=== PATIENT | male | born 1995 | race Caucasian/White ===

== ENCOUNTER 2024-03-22 22:31 | Emergency (ER) | payer SELFPAY ==
[2024-03-22 22:36] VITALS: BP 154/90
[2024-03-22 23:41] VITALS: BP 167/84; BMI 27.7
--- NOTE | 2024-03-22 23:49 | ED.GENMED ---
History of Present Illness
General
Chief Complaint: Psychiatric Problem
Source: patient and family
Time Seen by Provider: 03/22/24 23:39
History of Present Illness
History of Present Illness:
29-year-old male states he has been drinking 14 beers a day for some time. He states he has been depressed and has had thoughts of suicide. States that he feels like he is drinking to ultimately kill himself. Brought in by his brother. Does
think he needs help. He states he has been drinking in the morning when he wakes up.
Past History
Past History
ED Past Medical History: Psychiatric (Prior suicidal attempt)
Phy Exam
Physical Exam
Physical Exam:
CONSTITUTIONAL Patient alert and oriented to person, place and time. Well-appearing. Vital signs reviewed.
HEAD atraumatic, normocephalic.
EYES eyelids normal to inspection, Pupils equally round and reactive to light, Extraocular muscles intact, Conjunctiva normal, Sclera normal.
NECK normal range of motion, Trachea midline, no jugular venous distention.
RESPIRATORY CHEST No respiratory distress noted, Chest expansion equal, Bilateral breath sounds clear.
CARDIOVASCULAR regular rate and rhythm, Heart sounds normal.
ABDOMEN abdomen nontender, Bowel sounds normal. No distention.
BACK normal inspection, no obvious deformities
UPPER EXTREMITY range of motion normal, Motor strength normal, no cyanosis, no edema.
LOWER EXTREMITY range of motion normal, Motor strength normal, no cyanosis, no edema.
NEURO Speech normal, No focal motor deficits, [place] coma scale 15, Memory normal, Cranial Nerves intact to screening exam.
SKIN skin warm, dry, and normal in color.
PSYCHIATRIC patient oriented to person place and time, depressed affect
Course
Orders/Labs/Results
Orders:
Orders
03/22/24 23:45
1:1 Observation - Suicide/ Violent Behavior As Directed
Crisis Consult Urgent
Reason for Consult: sucidal ideation
03/22/24 23:53
Acetaminophen Urgent
Alcohol Urgent
Complete Blood Count/With Diff Urgent
Comprehensive Metabolic Panel Urgent
Magnesium Urgent
Salicylate Urgent
Urine Drug Abuse Screen Urgent
Date Specimen was Collected: 03/22/24
Time Specimen was Collected: 23:47
03/22/24 23:56
0.9% Sodium Chloride 500 ml [Nss] 1,000 ml IV BOLUS
03/23/24 00:42
Lorazepam [Ativan] 1 mg PO NOW STA
Abnormal Lab Results
03/22/24
23:53
WBC 11.0 H 10^3/uL
(4.8-10.8)
Abs Immat Gran (auto) 0.1 H 10^3/uL
(0-0.05)
Absolute Lymphs (auto) 4.2 H 10^3/uL
(1.2-3.4)
Absolute Monos (auto) 0.7 H 10^3/uL
(0.1-0.6)
Absolute Eos (auto) 1.0 H 10^3/uL
(0-0.7)
Immature Gran % 1.1 H %
(0-0.5)
Eosinophils % 9.2 H %
(0-6)
Chloride 97 L mmol/L
(98-107)
Albumin 5.4 H g/dl
(3.5-5.0)
Salicylates < 1.0 L mg/dl
(2.0-20.0)
Acetaminophen < 10 L ug/ml
(10-30)
03/22/24 23:53
03/22/24 23:53
Vital Signs
Initial and Last Documented VS:
Initial Vital Signs
Temp Pulse Resp BP Pulse Ox
98.2 F 91 20 154/90 98
03/22/24 22:36 03/22/24 22:36 03/22/24 22:36 03/22/24 22:36 03/22/24 22:36
Last Documented Vital Signs
Temp Pulse Resp BP Pulse Ox
98.2 F 60 16 167/84 98
03/22/24 22:36 03/22/24 23:41 03/22/24 23:41 03/22/24 23:41 03/22/24 23:41
MDM/Problems Addressed
MDM/Problems Addressed:
Major depression, alcohol abuse, suicidal thoughts
*Pulse Oximetry
Patient hypoxic: no
*Critical Care Note
Total Time (30-74mins, 75-104mins- exclusive of procedures): Not Applicable
Data Reviewed
Source: patient and family
Patient Management
Escalation/DeEscalation of care consider admission/obs:
29-year-old male presents for help with both his psychiatric care as well as his substance abuse. Stable. Does not appear to be in florid withdrawal but feels a little bit shaky. Okay for discharge to crisis after oral lorazepam
ED Attending Note
-
Portions of this chart may have been created with voice recognition software.� Occasional wrong word or��sound alike� substitutions may have occurred due to the inherent limitations of voice recognition software.
Discharge Plan
Departure
Patient Disposition: Psych Facility
Date of Disposition: 03/22/24
Time of Disposition: 23:49
Discharge Problem:
Depression with suicidal ideation, Alcohol abuse
Prescriptions:
No Action
No Current Medications
0
Referrals:
Tulio Lancaster MD [Family Provider] -
Interventions
Interventions:
*Risk Screen - Suicide Last Done: 03/22/24 23:41
*General Assessment Last Done: 03/22/24 23:41
*Neglect/Abuse Screening Last Done: 03/22/24 23:41
*ED COVID-19 Vaccine History Last Done: 03/22/24 23:41
*Nursing Disposition Last Done: 03/23/24 01:09
ED-Psychological Assessment Last Done: 03/22/24 23:41
Discharge Date and Time
Discharge Date/Time: 03/23/24 01:15
Print Language: MAORI
[2024-03-22] MEDS: NSS 1000 IV (23:57)
[2024-03-23 00:26] LABS: Amphetamines Negative (Negative); Barbiturates Negative (Negative); Benzodiazepines Negative (Negative); Buprenorphine Negative (Negative); Cocaine Negative (Negative); Marijuana Negative (Negative); Methadone Negative (Negative); Methamphetamines Negative (Negative); Opiates Negative (Negative); Phencyclidine Negative (Negative); Tricyclic Antidepressants Negative (Negative)
[2024-03-23 00:27] LABS: ALT (SGPT) 40 U/L (0-50); AST (SGOT) 55 U/L (17-59); Acetaminophen < 10 ug/ml (10-30); Albumin 5.4 g/dl (3.5-5.0); Alcohol 260 mg/dl; Alkaline Phosphatase 61 U/L (38-126); Blood Urea Nitrogen 9 mg/dl (9-20); Calcium 10.1 mg/dl (8.4-10.2); Carbon Dioxide 22 mmol/L (22-30); Chloride 97 mmol/L (98-107); Estimated Creatinine Clearance 116 ml/min; Glucose 87 mg/dl (70-99); Magnesium 2.2 mg/dl (1.6-2.3); Potassium 4.9 mmol/L (3.5-5.1); Salicylate < 1.0 mg/dl (2.0-20.0); Sodium 138 mmol/L (135-145); Total Bilirubin 0.5 mg/dl (0.2-1.3); Total Protein 8.2 g/dl (6.3-8.2); eGFR > 60.00
[2024-03-23 00:40] LABS: % Basophils 0.8 % (0-2); % Eosinophils 9.2 % (0-6); % Immature Granulocytes 1.1 % (0-0.5); % Monocytes 6.7 % (1.7-9.3); % Neutrophils 44.2 % (42.2-75.2); Absolute Basophils 0.1 10^3/uL (0-0.2); Absolute Immature Granulocytes 0.1 10^3/uL (0-0.05); Absolute Lymphocytes 4.2 10^3/uL (1.2-3.4); Absolute Monocytes 0.7 10^3/uL (0.1-0.6); Absolute Neutrophils 4.9 10^3/uL (1.4-6.5); Hematocrit 45.6 % (39.0-52.0); Mean Corp Hgb Conc. 35.1 g/dL (33.0-37.0); Mean Corpuscular Hgb 30.2 pg (27.0-31.0); Mean Corpuscular Volume 86.2 fL (80.0-94.0); Mean Platelet Volume 9.6 fL (7.4-10.4); Nucleated Red Blood Cells % 0 % (-); Platelet Count 361 10^3/uL (130-400); Red Blood Cell Count 5.29 10^6/uL (4.70-6.10); Red Cell Dist. Width 12.6 % (11.5-14.5)
[2024-03-23] MEDS: ATIVAN 1 MG PO (01:04)
== END 2024-03-23 01:15 ==
LOC: EMR 22:31
PROVIDERS: EMERGENCY PHYSICIAN Emergency Medicine; FAMILY PHYSICIAN Family Medicine
DX: F32.9 Major depressive disorder, single episode, unspecified (principal); R45.851 Suicidal ideations; F10.10 Alcohol abuse, uncomplicated; Y90.8 Blood alcohol level of 240 mg/100 ml or more; Z91.51 Personal history of suicidal behavior
CPT/HCPCS: 99285; 96360; 80053; 80143; 80179; 80306; 82077; 83735; 85025

== ENCOUNTER 2024-03-23 09:00 | Emergency (ER) | payer MEDICAID, SELFPAY ==
[2024-03-23 09:06] VITALS: BP 152/91
[2024-03-23 09:16] VITALS: BMI 27.7
[2024-03-23] MEDS: ATIVAN 1 MG PO (09:25)
--- NOTE | 2024-03-23 09:28 | ED.GENMED ---
History of Present Illness
General
Chief Complaint: Alcohol Problem
Time Seen by Provider: 03/23/24 09:12
History of Present Illness
History of Present Illness:
Patient is a 29-year-old male with history of alcohol use presenting to the emergency department from crisis with withdrawal symptoms. Patient states that he drank about 100 beers for the past 3 days. He last drank about 12 hours ago. He states
that he drinks to kill himself as he has been having severe familial issues. He does smoke marijuana daily. He was at crisis with plan placement to [place] for dual SI/withdrawal however he started to develop more withdrawal symptoms they brought
him here. Patient states that he feels shaky. He states that his last Ativan was about 9 hours ago. He denies being withdrawal before. He has never had seizures before. Never gone to a detox center. Does not have any medical complaints.
Past History
Past History
ED Past Medical History: Psychiatric (Prior suicidal attempt)
Phy Exam
Physical Exam
Physical Exam:
GENERAL: in no acute distress, slightly tremulous
HEENT: normocephalic, extraocular movements intact, moist oral mucosa
NECK: normal inspection
RESPIRATORY: no respiratory distress, clear to auscultation bilaterally
CARDIOVASCULAR: regular rate and rhythm
ABDOMEN/: soft, non-distended, non-tender to palpation, no rebound or guarding
EXTREMITIES: non-tender, no edema/swelling
NEUROLOGIC: awake and alert, moves all extremities
Psych: Alert and oriented x 3, depressed mood, cooperative and communicating, no active auditory or visual hallucinations, good insight and judement
SKIN: warm
Scores
Withdrawal Assessment of Alcohol
Withdrawal Assessment Completed?: Not applicable
Course
Orders/Labs/Results
Orders:
Orders
03/23/24 09:17
Lorazepam [Ativan] 1 mg PO NOW STA
03/23/24 09:24
ED Special Safety Observation ONCE
Observation level: Intermittent Observation
Lorazepam [Ativan] 1 mg .ROUTE .STK-MED ONE
03/23/24 10:00
Nicotine [Nicoderm Transdermal] 7 mg TRANSDERM DAILY
Vital Signs
Initial and Last Documented VS:
Initial Vital Signs
Temp Pulse Resp BP Pulse Ox
98.1 F 119 20 152/91 96
03/23/24 09:06 03/23/24 09:06 03/23/24 09:06 03/23/24 09:06 03/23/24 09:06
Last Documented Vital Signs
Temp Pulse Resp BP Pulse Ox
98.1 F 112 20 145/72 95
03/23/24 09:06 03/23/24 10:46 03/23/24 10:46 03/23/24 10:46 03/23/24 09:45
MDM/Problems Addressed
Differential Diagnosis Includes:
Patient is a 29-year-old man with history of alcohol use presenting to the emergency department with withdrawal symptoms. Vitals here notable for tachycardia in the low 100s. Exam is otherwise reassuring. He is likely going through mild
withdrawal. Will obtain msas score and give Ativan as needed. I did discuss with crisis and patient is pending transfer in about an hour for dual SI/detox. He currently has no medical complaints. Will continue to symptomatically treat his
withdrawal symptoms while waiting transportation.
*Critical Care Note
Total Time (30-74mins, 75-104mins- exclusive of procedures): Not Applicable
Update Note
Update Note:
On reevaluation patient resting comfortably. Pending transfer to facility.
ED Attending Note
-
Portions of this chart may have been created with voice recognition software.� Occasional wrong word or��sound alike� substitutions may have occurred due to the inherent limitations of voice recognition software.
Discharge Plan
Departure
Patient Disposition: Acute Rehab Facility
Discharge Problem:
Alcohol withdrawal
Prescriptions:
No Action
No Current Medications
0
Interventions
Interventions:
*Risk Screen - Suicide Last Done: 03/23/24 09:19
*Neglect/Abuse Screening Last Done: 03/23/24 09:19
*ED COVID-19 Vaccine History Last Done: 03/23/24 09:18
*Nursing Disposition Last Done: 03/23/24 10:46
ED- Neurological Assessment Last Done: 03/23/24 10:03
ED-Psychological Assessment Last Done: 03/23/24 10:03
Discharge Date and Time
Discharge Date/Time: 03/23/24 10:46
Print Language: FRENCH
[2024-03-23] MEDS: NICODERM TRANSDERMAL 7 MG TRANSDERM (09:48)
[2024-03-23 10:00] VITALS: BP 145/95
[2024-03-23 10:46] VITALS: BP 145/72
== END 2024-03-23 10:46 ==
LOC: EMR 09:00
PROVIDERS: EMERGENCY PHYSICIAN Student in an Organized Health Care Education/Training Program; FAMILY PHYSICIAN Family Medicine
DX: F10.939 Alcohol use, unspecified with withdrawal, unspecified (principal); R45.851 Suicidal ideations; F12.90 Cannabis use, unspecified, uncomplicated; Z91.51 Personal history of suicidal behavior
CPT/HCPCS: 99285

== ENCOUNTER 2024-04-09 20:03 | Emergency (ER) | payer MEDICAID, SELFPAY ==
[2024-04-09 20:07] VITALS: BP 122/77
[2024-04-09 20:08] VITALS: BP 122/77; BMI 24.3
[2024-04-09 20:26] LABS: % Basophils 0.5 % (0-2); % Eosinophils 9.5 % (0-6); % Immature Granulocytes 0.3 % (0-0.5); % Lymphocytes 30.6 % (20.5-51.1); % Monocytes 5.8 % (1.7-9.3); % Neutrophils 53.3 % (42.2-75.2); Absolute Basophils 0.1 10^3/uL (0-0.2); Absolute Eosinophils 0.9 10^3/uL (0-0.7); Absolute Lymphocytes 2.9 10^3/uL (1.2-3.4); Absolute Monocytes 0.6 10^3/uL (0.1-0.6); Hematocrit 43.5 % (39.0-52.0); Hemoglobin 15.2 g/dL (13.0-18.0); Mean Corp Hgb Conc. 34.9 g/dL (33.0-37.0); Mean Corpuscular Hgb 30.2 pg (27.0-31.0); Mean Corpuscular Volume 86.5 fL (80.0-94.0); Mean Platelet Volume 8.8 fL (7.4-10.4); Nucleated Red Blood Cells % 0 % (-); Platelet Count 344 10^3/uL (130-400); Red Blood Cell Count 5.03 10^6/uL (4.70-6.10); Red Cell Dist. Width 12.9 % (11.5-14.5); White Blood Cell Count 9.4 10^3/uL (4.8-10.8)
--- NOTE | 2024-04-09 20:40 | EDRN ---
Crisis went in and spoke to patient, states cleared to speak with [facility] who I called and is on the way in.
[2024-04-09 20:43] LABS: ALT (SGPT) 56 U/L (0-50); AST (SGOT) 63 U/L (17-59); Albumin 4.8 g/dl (3.5-5.0); Alcohol 279 mg/dl; Alkaline Phosphatase 53 U/L (38-126); Blood Urea Nitrogen 8 mg/dl (9-20); Calcium 9.7 mg/dl (8.4-10.2); Carbon Dioxide 23 mmol/L (22-30); Chloride 104 mmol/L (98-107); Estimated Creatinine Clearance > 125 ml/min; Glucose 109 mg/dl (70-99); Potassium 4.4 mmol/L (3.5-5.1); Sodium 145 mmol/L (135-145); Total Bilirubin 0.4 mg/dl (0.2-1.3); Total Protein 7.3 g/dl (6.3-8.2); eGFR > 60.00
--- NOTE | 2024-04-09 21:01 | ED.GENMED ---
History of Present Illness
General
Chief Complaint: Alcohol Problem
Source: patient
Time Seen by Provider: 04/09/24 20:11
History of Present Illness
History of Present Illness:
21-year-old male who presents with continued alcohol abuse. Patient states he has a history of depression. Patient states he probably drank about 750 mL of carlos today. He has been drinking heavily for a few weeks. He does want help. He was
taken to a dual center in the recent past but states he left because he could not handle it there. He denies chest pain or shortness of breath. No abdominal pain. The patient specifically denies suicidal ideology
Past History
Past History
ED Past Medical History: Psychiatric (Prior suicidal attempt, depression, anxiety, alcohol abuse)
Phy Exam
Physical Exam
Physical Exam:
CONSTITUTIONAL Vital signs reviewed, Patient alert and oriented to person, place and time. Well-appearing
HEAD atraumatic, normocephalic.
EYES eyelids normal to inspection, Extraocular muscles intact, Conjunctiva normal, Sclera normal.
NECK normal range of motion, Trachea midline, no jugular venous distention.
RESP no respiratory distress
BACK No obvious deformities
UPPER EXTREMITY Gross Range of motion normal, gross motor strength normal
LOWER EXTREMITY Gross range of motion normal, Gross motor strength normal
NEURO Speech normal, No focal motor deficits include, [place] coma scale 15, Memory normal, Cranial Nerves intact to screening exam.
SKIN Skin warm, dry, and normal in color.
PSYCHIATRIC Patient oriented to person place and time, Normal affect.
Scores
Withdrawal Assessment of Alcohol
Withdrawal Assessment Completed?: Yes
Nausea and Vomiting: No nausea and no vomiting
Tactile Disturbances: None
Tremor: No tremor
Auditory Disturbances: Not present
Paroxysmal Sweats: No sweat visible
Visual Disturbances: Not present
Anxiety: Mild anxiety
Headache, Fullness in Head: Not present
Agitation: Normal activity
Orientation and clouding of sensorium: Oriented and can do serial additions
Total CIWA Score: 1
Alcohol Withdrawal Medication Recommendation: Equal to MSAS Score 0-4. Monitor & re-assess q2hrs, NO MEDICATION NEEDED
Course
Orders/Labs/Results
Orders:
Orders
04/09/24 20:18
Crisis Consult Urgent
Reason for Consult: depression
04/09/24 20:19
Alcohol Urgent
CMP [Comprehensive Metabolic Panel] Urgent
Complete Blood Count/With Diff Urgent
04/09/24 20:33
Crisis Consult Urgent
Reason for Consult: depression
04/09/24 22:59
Lorazepam [Ativan] 1 mg PO NOW STA
04/10/24 08:16
Lorazepam [Ativan] 1 mg .ROUTE .STK-MED ONE
04/10/24 08:17
Lorazepam [Ativan] 1 mg PO NOW STA
Abnormal Lab Results
04/09/24
20:19
Absolute Eos (auto) 0.9 H 10^3/uL
(0-0.7)
Eosinophils % 9.5 H %
(0-6)
BUN 8 L mg/dl
(9-20)
Glucose 109 H mg/dl
(70-99)
AST 63 H U/L
(17-59)
ALT 56 H U/L
(0-50)
04/09/24 20:19
04/09/24 20:19
Vital Signs
Initial and Last Documented VS:
Initial Vital Signs
BP
122/77
04/09/24 20:07
Last Documented Vital Signs
Temp Pulse Resp BP Pulse Ox
98.6 F 74 18 122/61 99
04/10/24 08:26 04/10/24 10:55 04/10/24 10:55 04/10/24 10:55 04/10/24 10:55
MDM/Problems Addressed
MDM/Problems Addressed:
Alcoholism
*Pulse Oximetry
Patient hypoxic: no
*Critical Care Note
Total Time (30-74mins, 75-104mins- exclusive of procedures): Not Applicable
Data Reviewed
Source: patient
Patient Management
Discussion with other providers: Other (Case discussed with crisis, they deferred to [facility])
Escalation/DeEscalation of care consider admission/obs:
case d/w [facility]
29-year-old male. Stable. Placement was obtained for the patient in the a.m. with [facility]. I think this is reasonable to monitor the patient overnight here in the emergency department. Continue to watch closely
ED Attending Note
-
Portions of this chart may have been created with voice recognition software.� Occasional wrong word or��sound alike� substitutions may have occurred due to the inherent limitations of voice recognition software.
Discharge Plan
Departure
Patient Disposition: Acute Rehab Facility
Date of Disposition: 04/09/24
Time of Disposition: 21:02
Discharge Problem:
Acute alcoholism
Prescriptions:
No Action
No Current Medications
0
Interventions
Interventions:
*Risk Screen - Suicide Last Done: 04/09/24 20:08
*General Assessment Last Done: 04/09/24 20:08
*Neglect/Abuse Screening Last Done: 04/09/24 20:16
ED- Fall Risk Assessment Last Done: 04/09/24 20:16
*ED COVID-19 Vaccine History Last Done: 04/09/24 20:08
*Nursing Disposition Last Done: 04/10/24 10:55
ED- Neurological Assessment Last Done: 04/09/24 20:16
ED-Psychological Assessment Last Done: 04/09/24 20:16
Discharge Date and Time
Discharge Date/Time: 04/10/24 10:57
Print Language: LITHUANIAN
[2024-04-09 22:49] VITALS: BP 97/50
[2024-04-09] MEDS: ATIVAN 1 MG PO (23:26)
--- NOTE | 2024-04-10 01:04 | EDRN ---
Sleeping at this time, call pedraza in reach, will continue to monitor
--- NOTE | 2024-04-10 02:18 | EDRN ---
Patient sleeping at this time, call pedraza in reach.
[2024-04-10 02:52] VITALS: BP 122/69
--- NOTE | 2024-04-10 03:02 | EDRN ---
Report to ROLANDO Chacon
[2024-04-10 04:00] VITALS: BP 116/66
[2024-04-10 08:01] VITALS: BP 125/72
[2024-04-10] MEDS: ATIVAN 1 MG PO (08:41)
[2024-04-10 10:55] VITALS: BP 122/61
== END 2024-04-10 10:57 ==
LOC: EMR 20:03
PROVIDERS: EMERGENCY PHYSICIAN Emergency Medicine; FAMILY PHYSICIAN Family Medicine
DX: F10.20 Alcohol dependence, uncomplicated (principal); Z91.51 Personal history of suicidal behavior
CPT/HCPCS: 99285; 80053; 82077; 85025